=== PATIENT | male | born 1960 | race Caucasian/White ===

== ENCOUNTER 2019-04-13 17:12 | Emergency (ER) | payer MEDICAID ==
[~2019-04-13] VITALS: Ht 182.9 cm; Wt 104.3 kg
[2019-04-13 17:21] VITALS: Ht 182.9 cm; Wt 104.3 kg
[2019-04-13 18:03] LABS: BASOPHIL % 0.4 % (0-2); PLATELET COUNT 185 x10^3mcL (130-400); RED CELL DISTRIBUTION WIDTH 13.9 % (11.5-14.5)
[2019-04-13 18:16] LABS: CALCIUM 8.1 mg/dL (8.5-10.1); CARBON DIOXIDE 23.1 mmol/L (21-32); CHLORIDE SERUM 103 mmol/L (98-107); GFR1 > 60 mL/min; GLUCOSE SERUM 408 mg/dL (74-106); POTASSIUM SERUM 3.7 mmol/L (3.5-5.1); SODIUM SERUM 137 mmol/L (136-145)
[2019-04-13 18:21] LABS: ALKALINE PHOSPHATASE 88 U/L (46-116); ALT/SGPT 48 U/L (16-63); AST/SGOT 43 U/L (15-37); BILIRUBIN TOTAL 1.1 mg/dL (0.20-1.00); TOTAL PROTEIN, SERUM 6.7 g/dL (6.4-8.2)
[2019-04-13 18:24] LABS: ALBUMIN 2.3 g/dL (3.4-5.0)
[2019-04-13 18:53] VITALS: BP 184/71
== END 2019-04-13 18:53 | disposition short-term general hospital (02) ==
LOC: ED 17:12
PROVIDERS: Emergency Medicine
DX: I63.9 Cerebral infarction, unspecified (principal); I10 Essential (primary) hypertension; E11.9 Type 2 diabetes mellitus without complications; M25.552 Pain in left hip; M25.572 Pain in left ankle and joints of left foot
CPT/HCPCS: 36415; 82962; Q0092; Q9967